=== PATIENT | female | born 1960 | race Caucasian/White ===

== ENCOUNTER → 2017-09-09 | Emergency (ER) | payer OTHER ==
[~2017-09-09] VITALS: Ht 165.1 cm; Wt 69.9 kg
[~2017-09-09] MED LIST: COZAAR25 MG
== END | disposition home or self-care (01) ==
LOC: ER 17:31
DX: N39.0 Urinary tract infection, site not specified (principal)

== ENCOUNTER → 2019-02-05 | Outpatient (CLI) | payer OTHER | END | disposition home or self-care (01) | LOC: RAD 12:30 | DX: N95.0 Postmenopausal bleeding (principal); M54.12 Radiculopathy, cervical region | CPT/HCPCS: 70551; 72141 ==

== ENCOUNTER 2019-06-13 09:12 | Outpatient (CLI) | payer OTHER | END 2019-06-13 09:21 | disposition home or self-care (01) | LOC: NUCLEAR 09:12 | DX: C50.411 Malignant neoplasm of upper-outer quadrant of right female breast (principal) | CPT/HCPCS: 78815; A9552 ==

== ENCOUNTER 2019-07-09 10:44 | Outpatient (CLI) | payer OTHER | END 2019-07-09 12:00 | disposition home or self-care (01) | LOC: NUCLEAR 10:44 | DX: I70.213 Atherosclerosis of native arteries of extremities with intermittent claudication, bilateral legs (principal) ==

== ENCOUNTER 2019-07-09 12:20 | Outpatient (CLI) | payer OTHER | END 2019-07-09 12:29 | disposition home or self-care (01) | LOC: SONOGRAMA 12:20 | DX: E04.2 Nontoxic multinodular goiter (principal) ==

== ENCOUNTER 2020-07-30 11:42 | Outpatient (CLI) | payer OTHER | END 2020-07-30 12:55 | disposition home or self-care (01) | LOC: NUCLEAR 11:42 | DX: I73.9 Peripheral vascular disease, unspecified (principal) ==

== ENCOUNTER 2020-07-31 10:42 | Outpatient (CLI) | payer OTHER | END 2020-07-31 10:43 | disposition home or self-care (01) | LOC: NUCLEAR 10:42 | DX: I87.2 Venous insufficiency (chronic) (peripheral) (principal) ==

== ENCOUNTER 2020-08-26 15:04 | Outpatient (CLI) | payer OTHER | END 2020-08-26 15:11 | disposition home or self-care (01) | LOC: SONOGRAMA 15:04 | PROVIDERS: ATTEND Obstetrics & Gynecology Gynecology | DX: R10.2 Pelvic and perineal pain (principal) ==